=== PATIENT | female | born 1965 | race Caucasian/White ===

== ENCOUNTER → 2020-12-26 | Outpatient (CLI) | payer BC ==
[~2020-12-26] VITALS: Ht 165.1 cm; Wt 59.1 kg
[~2020-12-26] MED LIST: ACETAMINOPHEN 325 MG TABLET PO PRN; ALBUTEROL SULFATE 2.5 MG/3 ML NPPB PRN; CEFAZOLIN 1,000 MG ONE; DEXAMETHASONE 4 MG/ML, 1ML ONE; DIAZEPAM 5 MG/ML, 2ML IVPush PRN; DIPHENHYDRAMINE 50 MG/ML, 1ML IVPush PRN; EPHEDRINE 50 MG/ML, 1ML IVPush PRN; FENTANYL PF 100 MCG/2ML IV PRN; FENTANYL PF 250 MCG/5ML ONE; HYDROmorphone 1 MG/ML, 1ML INJ IVPush PRN; LABETALOL 5MG/ML, 20ML IV PRN; MEPERIDINE/PF 25MG/0.5ML IVPush PRN; MIDAZOLAM 1 MG/ML, 2ML IV PRN; MIDAZOLAM 1 MG/ML, 2ML ONE; NONE PER PT; ONDANSETRON 2MG/ML, 2ML IVPush PRN; ONDANSETRON 2MG/ML, 2ML ONE; OXYcodone 5 MG/5 ML ORAL.SOL UDC PO PRN; PROMETHAZINE 12.5 MG SUPP PR PRN; PROMETHAZINE 25 MG/ML, 1ML IVPush PRN; PROPOFOL 10 MG/ML, 20ML ONE; ROCURONIUM 10MG/ML,5ML ONE; SUCCINYLCHOLINE 20 MG/ML, 10ML ONE; hydrALAzine 20 MG/ML, 1ML IV PRN
== END | disposition home or self-care (01) ==
LOC: STAR 08:00 → EDSTATUS 12-29 10:00
PROVIDERS: ATTEND Plastic Surgery
DX: Z20.822 Contact with and (suspected) exposure to COVID-19 (principal); C43.9 Malignant melanoma of skin, unspecified
CPT/HCPCS: U0003; U0005; J0690; J1100; J2250; J2405; J2704; J3010; J0330

== ENCOUNTER 2021-01-16 08:55 | Day surgery (SDC) | payer BC ==
[~2021-01-16] VITALS: Ht 162.6 cm; Wt 65.6 kg
[~2021-01-16 08:55] MED LIST changes: -ACETAMINOPHEN 325 MG TABLET PO PRN; -ALBUTEROL SULFATE 2.5 MG/3 ML NPPB PRN; -CEFAZOLIN 1,000 MG ONE; -DEXAMETHASONE 4 MG/ML, 1ML ONE; -DIAZEPAM 5 MG/ML, 2ML IVPush PRN; -DIPHENHYDRAMINE 50 MG/ML, 1ML IVPush PRN; -EPHEDRINE 50 MG/ML, 1ML IVPush PRN; -FENTANYL PF 100 MCG/2ML IV PRN; -FENTANYL PF 250 MCG/5ML ONE; -HYDROmorphone 1 MG/ML, 1ML INJ IVPush PRN; -LABETALOL 5MG/ML, 20ML IV PRN; -MEPERIDINE/PF 25MG/0.5ML IVPush PRN; -MIDAZOLAM 1 MG/ML, 2ML IV PRN; -MIDAZOLAM 1 MG/ML, 2ML ONE; -ONDANSETRON 2MG/ML, 2ML IVPush PRN; -ONDANSETRON 2MG/ML, 2ML ONE; -OXYcodone 5 MG/5 ML ORAL.SOL UDC PO PRN; -PROMETHAZINE 12.5 MG SUPP PR PRN; -PROMETHAZINE 25 MG/ML, 1ML IVPush PRN; -PROPOFOL 10 MG/ML, 20ML ONE; -ROCURONIUM 10MG/ML,5ML ONE; -SUCCINYLCHOLINE 20 MG/ML, 10ML ONE; -hydrALAzine 20 MG/ML, 1ML IV PRN
[2021-01-16 11:10] VITALS: BP 168/90
[2021-01-16] MEDS ORDERED: LACTATED RINGERS 1,000 ML IV SCH (11:30)
[2021-01-16] MEDS ORDERED: CHLORHEXIDINE 15 ML UDC PO ONE (11:30)
[2021-01-16] MEDS ORDERED: PLEASE ENTER HEIGHT AND WEIGHT MC SCH (11:30)
[2021-01-16] MEDS ORDERED: LIDOCAINE/PF 1%, 30ML ONE (12:33)
[2021-01-16] MEDS ORDERED: EPINEPHRINE 1 MG/ML, 1ML ONE (12:33)
[2021-01-16] MEDS ORDERED: NEOSPORIN OINT, 15GM ONE (14:44)
[2021-01-16] MEDS ORDERED: OXYcodone 5 MG/5 ML ORAL.SOL UDC ONE (15:27)
[2021-01-16] MEDS ORDERED: ACETAMINOPHEN 650 MG/20.3 ML UDC ONE (15:27)
[2021-01-16] MEDS ORDERED: FENTANYL PF 100 MCG/2ML ONE (15:28)
[2021-01-16] MEDS ORDERED: ACETAMINOPHEN 325 MG TABLET PO PRN (16:00)
[2021-01-16] MEDS ORDERED: HYDROmorphone 1 MG/ML, 1ML INJ IVPush PRN (16:00)
[2021-01-16] MEDS ORDERED: LABETALOL 5MG/ML, 20ML IV PRN (16:00)
[2021-01-16] MEDS ORDERED: FENTANYL PF 100 MCG/2ML IV PRN (16:00)
[2021-01-16] MEDS ORDERED: PROMETHAZINE 25 MG/ML, 1ML IVPush PRN (16:00)
[2021-01-16] MEDS ORDERED: OXYcodone 5 MG/5 ML ORAL.SOL UDC PO PRN (16:00)
[2021-01-16] MEDS ORDERED: hydrALAzine 20 MG/ML, 1ML IV PRN (16:00)
== END 2021-01-16 17:10 | disposition home or self-care (01) ==
LOC: OUT 08:55
PROVIDERS: ATTEND Plastic Surgery
DX: C43.21 Malignant melanoma of right ear and external auricular canal (principal); Z20.822 Contact with and (suspected) exposure to COVID-19; Z88.1 Allergy status to other antibiotic agents; Z72.89 Other problems related to lifestyle; Z87.891 Personal history of nicotine dependence
CPT/HCPCS: 11642; 38500; 78195; 87635; 88305; 88307; 88342; A9541; J0171; J0330; J0690; J1100; J2250; J2405; J2704; J3010; J7120

== ENCOUNTER → 2021-03-02 | Outpatient (CLI) | payer BC ==
[~2021-03-02] MED LIST changes: +GADOTERATE 7.5 MMOL/15ML SYR ONE
== END | disposition home or self-care (01) ==
LOC: RAD 15:30
PROVIDERS: ATTEND Internal Medicine Hematology & Oncology
DX: C43.21 Malignant melanoma of right ear and external auricular canal (principal)
CPT/HCPCS: 70553; A9575